=== PATIENT | female | born 2005 | race Caucasian/White ===

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

== ENCOUNTER 2024-01-09 16:23 | Emergency (ER) | payer OTHER ==
[~2024-01-09] VITALS: Ht 167.6 cm; Wt 63.5 kg
[2024-01-09 17:04] LABS: Source, Urine Voided
[2024-01-09 17:10] LABS: Appearance, Urine Cloudy (Clear); BASOPHILS ABSOLUTE AUTO 0.09 K/mm3 (0.00-0.23); BASOPHILS PERCENT AUTO 1 % (0-2); Bilirubin, Urine Neg (Neg); Blood, Urine 5+ (Neg); Color, Urine Brown (P-Yellow); EOSINOPHILS ABSOLUTE AUTO 0.61 K/mm3 (0.00-0.68); EOSINOPHILS PERCENT AUTO 5 % (0-6); Glucose Qualitative, Urine Neg (Neg); Hematocrit 41.3 % (33.0-51.0); Hemoglobin 13.6 g/dL (11.5-16.0); IMMATURE GRAN ABSOLUTE AUTO 0.05 K/mm3 (0.00-0.10); IMMATURE GRAN PERCENT AUTO 0 % (0-1); Ketones, Urine Neg (Neg); LYMPHOCYTES ABSOLUTE AUTO 1.89 K/mm3 (0.84-5.20); LYMPHOCYTES PERCENT AUTO 17 % (21-46); Leukocyte Esterase, Urine 2+ (Neg); MONOCYTES ABSOLUTE AUTO 0.74 K/mm3 (0.16-1.47); MONOCYTES PERCENT AUTO 7 % (4-13); Mean Corpuscular HGB 28.5 pg (26.0-34.0); Mean Corpuscular HGB Conc 32.9 g/dL (31.5-36.5); Mean Corpuscular Volume 86 fL (80-100); Mean Platelet Volume 10.1 fL (9.1-12.4); NEUTROPHILS ABSOLUTE AUTO 8.05 K/mm3 (1.96-9.15); NEUTROPHILS PERCENT AUTO 71 % (41-73); Nitrite, Urine Neg (Neg); Platelet Count 255 K/mm3 (150-400); Protein, Urine 2+ (Neg); RDW Coefficient Variation 14.3 % (11.7-14.2); Red Blood Cell Count 4.78 M/mm3 (3.80-5.20); Specific Gravity, Urine 1.015 (1.003-1.022); Urobilinogen, Urine NORM (Normal); White Blood Cell Count 11.43 K/mm3 (4.00-11.30)
[2024-01-09 17:22] LABS: Bacteria Mod /hpf; Red Blood Cells, Urine 50-100 /hpf (0-2); Squamous Epithelial Cells Few /hpf (Few); Transitional Epithelial Cells Rare /hpf (0-Rare)
[2024-01-09 17:31] LABS: Ethanol (Alcohol), Blood, Med <3 mg/dL; Salicylate <1.7 mg/dL (2.8-20.0)
[2024-01-09 17:32] LABS: Alanine Aminotransfer (ALT/SGP 25 U/L (12-78); Albumin, Blood 3.9 g/dL (3.4-5.0); Albumin/Globulin Ratio 1.1 (0.8-1.8); Alk Phos 58 U/L (45-116); Anion Gap 9 mmol/L (3-11); Aspartate Aminotrans (AST/SGOT 19 U/L (12-37); Bilirubin, Total 0.3 mg/dL (0.1-1.0); Blood Urea Nitrogen 5 mg/dL (8-21); Bun/Creatinine Ratio 9.6 (12.0-20.0); CO2, Blood 28 mmol/L (21-32); Calcium, Blood 8.8 mg/dL (8.5-10.1); Chloride, Blood 107 mmol/L (98-108); Creatinine, Blood 0.52 mg/dL (0.40-1.00); Globulin, Blood 3.7 g/dL (2.2-4.0); Glomerular Filtration Rate 137 (60-); Glucose, Blood 88 mg/dL (70-99); Potassium, Blood 3.7 mmol/L (3.5-5.5); Sodium, Blood 140 mmol/L (136-145); Total Protein, Blood 7.6 g/dL (6.4-8.2)
[2024-01-09 17:33] LABS: Acetaminophen, Random <2.0 ug/mL (10.0-30.0)
[2024-01-09 17:36] LABS: U Amphetamine Screen Not Detected; U Barbituate Screen Not Detected; U Benzodiazapine Screen Not Detected; U Buprenorphine Screen Not Detected; U Cannabinoids Screen DETECTED; U Cocaine Screen Not Detected; U Methadone Screen Not Detected; U Methamphetamine Screen Not Detected; U Opiates Screen Not Detected; U Oxycodone Screen Not Detected; U Phencyclidine Screen Not Detected
[2024-01-10] MEDS ORDERED: Haloperidol 5 MG Tab PO PRN ×3 (05:00→05:05)
[2024-01-10] MEDS ORDERED: RisperiDONE 1 MG Tab PO PRN (05:00)
[2024-01-10] MEDS ORDERED: QUEtiapine Fumarate 25 MG Tab PO PRN (05:05)
[2024-01-10] MEDS ORDERED: OLANZapine ODT 10 MG Tab MM PRN (05:05)
[2024-01-10] MEDS ORDERED: OLANZapine 10 MG Vial IM PRN ×2 (05:05→05:10)
[2024-01-10] MEDS ORDERED: DiphenhydrAMINE HCl 50 MG Cap PO PRN ×3 (05:05→05:10)
[2024-01-10] MEDS ORDERED: Aluminum Hydroxide 320MG/5ML 473 ML PO PRN (05:10)
[2024-01-10] MEDS ORDERED: LORazepam 2 MG Tab PO PRN ×5 (05:10→05:15)
[2024-01-10] MEDS ORDERED: Acetaminophen 325 MG TABLET PO PRN (05:10)
[2024-01-10] MEDS ORDERED: Mirtazapine 15 MG Tab PO PRN (05:10)
[2024-01-10] MEDS ORDERED: TraZODone HCl 50 MG Tab PO PRN (05:10)
[2024-01-10] MEDS ORDERED: Ibuprofen 600 MG Tab PO PRN (05:15)
[2024-01-10] MEDS ORDERED: Melatonin 3 MG Tab PO PRN (05:15)
[2024-01-10] MEDS ORDERED: Nitrofurantoin/Nitrofuran Mac 100 MG Cap PO SCH ×2 (09:00→11:30)
[2024-01-10] MEDS ORDERED: Ferrous Sulfate 325 MG Tab PO SCH (13:00)
[2024-01-10] MEDS ORDERED: QUEtiapine Fumarate 100 MG Tab PO SCH (21:00)
--- NOTE | 2024-01-10 21:17 | NUR ---
PHYSICAL ASSESSMENT: PATIENT IS A AND 0 X 4, LUNG CLEAR THROUGHOUT, HRR, BT X 4, NO C/O CONSTIPATION. ABLE TO MAKE NEEDS KNOWN, ABLE TO ADVOCATE FOR SELF, BUT PREFERS SOMEONE THERE TO SUPPORT HER. STATES SHE SLEPT WELL LAST NIGHT.
--- NOTE | 2024-01-11 04:58 | NUR ---
SHIFT SUMMARY: PATIENT WAS AWAKE AND ON THE TELEPHONE WITH BOYFRIEND, QAMAR, WHEN RN RECEIVED PATIENT. SHE STATED THAT SHE WAS VISITING WITH HIM TOMORROW AND THEY SIGNED UP FOR 11:30 AM ON JANUARY 11, 2024. PATIENT HAD NO SI/HI THIS SHIFT. SHE STATED, "ALL I WANT IS A GOOD SLEEP" AND TOOK HER EVENING MEDICATIONS AT 2029. SHE THEN WAS NOTED TO BE RESTING QUIETLY IN BED WITH EYES CLOSED AND RESPIRATIONS CONFIRMED THROUGHOUT THE REMAINDER OF THE SHIFT.
[2024-01-11] MEDS ORDERED: buPROPion HCL 150 MG TAB.SR.12H PO SCH (09:00)
[2024-01-11] MEDS ORDERED: MENTHOL TOP PRN (10:15)
[2024-01-11] MEDS ORDERED: PHENOL TOP PRN (10:15)
[2024-01-11] MEDS ORDERED: CAMPHOR TOP PRN (10:15)
[2024-01-11] MEDS ORDERED: [UNRECOGNIZED DRUG - OTHER] TOP PRN (10:15)
== END 2024-01-10 02:30 | disposition other institution (70) ==
LOC: ER 16:23 → EOR 16:24 → ER 16:24 → EOR 22:22 → ER 22:22 → BHU 22:22
PROVIDERS: Emergency Medicine
DX: T14.91XA Suicide attempt, initial encounter (principal); S11.91XA Laceration without foreign body of unspecified part of neck, initial encounter; X78.8XXA Intentional self-harm by other sharp object, initial encounter; E11.9 Type 2 diabetes mellitus without complications; Z88.0 Allergy status to penicillin; Z88.1 Allergy status to other antibiotic agents
CPT/HCPCS: 12002; 36415; 80053; 81001; 81025; 84702; 84703; 85025; 87077; 87086; 87186; 93005; 93010; 99285-25; A9270; G0378; G0480

== ENCOUNTER 2024-01-09 22:22 | Inpatient (IN) | payer OTHER ==
--- NOTE | 2024-01-09 22:55 | NUR ---
CLOTH DESIZING RANGE OPERATOR CHIEF SPOKE WITH CARD PLACER PSYCHIATRIST REGARDING LEVEL OF SUPERVISION FOR PATIENT. HE STATED THAT PATIENT IS 15 MINUTE CHECK AT THIS TIME.
[2024-01-10 05:42] VITALS: BP 111/62
--- NOTE | 2024-01-10 08:24 | NUR ---
DENIES SI AT THIS TIME
[2024-01-10 10:03] VITALS: BP 124/90
--- NOTE | 2024-01-10 10:09 | NUR ---
Came onto shift at 0645 PT woke up around 0920, asked if she could have a change of scrubs as she started her period and bled through the bottom scrubs. I asked PT if I could grab her shower stuff for her, and she said she didnt want to shower and started to cry. I let PT know I could help her shower but we needed to clean the dried blood and wash her body. PT continued to cry, I said I wouldnt leave her side if she didnt want me too, she said okay. I grabbed PT shower stuff and new scrubs, we turned the shower on and she cried the entire time stating she just wanted to go home and felt bad that she was missing Group with OT Eda because of showering. I let her know that it is totally okay and there will be another group shortly. She said okay. She did not want to shower using soap, but after I poured some on the washcloth, she said okay and used it. She did not want to wash her hair, I asked her three times and she refused, I said that was ok but she needed to at least wet it down and scrub her scalp, she said okay and she did, I said if she wasnt going to put soap in her hair today then she would need to tomorrow, and she said that sounded like a good deal, I said okay. PT came out of the shower and I helped her dress into new scrubs, put two pads on her underwear, confirmed she changed her tampon. I checked the PTs room for any blood as it was smeared all across the toliet, I found blood on the bed, sheets, towels, mattress, and quilt. I grabbed JOSUE Crespo and she helped me clean the room properly and replace sheets. RN notified.
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
[2024-01-10] MEDS ORDERED: QUEtiapine Fumarate 100 MG Tab PO SCH (21:00)
[2024-01-11] MEDS ORDERED: buPROPion HCL 150 MG TAB.SR.12H PO SCH (09:00)
[2024-01-11] MEDS ORDERED: [UNRECOGNIZED DRUG - OTHER] TOP PRN (10:25)
[2024-01-11] MEDS ORDERED: MENTHOL TOP PRN (10:25)
[2024-01-11] MEDS ORDERED: PHENOL TOP PRN (10:25)
[2024-01-11] MEDS ORDERED: CAMPHOR TOP PRN (10:25)
[2024-01-11] MEDS ORDERED: Haloperidol 5 MG Tab PO PRN ×3 (11:10→11:25)
[2024-01-11] MEDS ORDERED: DiphenhydrAMINE HCl 50 MG Cap PO PRN ×3 (11:15→11:20)
[2024-01-11] MEDS ORDERED: LORazepam 2 MG Tab PO PRN ×5 (11:15→11:25)
[2024-01-11] MEDS ORDERED: OLANZapine ODT 10 MG Tab MM PRN (11:15)
[2024-01-11] MEDS ORDERED: OLANZapine 10 MG Vial IM PRN ×2 (11:15→11:20)
[2024-01-11] MEDS ORDERED: QUEtiapine Fumarate 25 MG Tab PO PRN (11:15)
[2024-01-11] MEDS ORDERED: Mirtazapine 15 MG Tab PO PRN (11:15)
[2024-01-11] MEDS ORDERED: Aluminum Hydroxide 320MG/5ML 473 ML PO PRN (11:20)
[2024-01-11] MEDS ORDERED: TraZODone HCl 50 MG Tab PO PRN (11:20)
[2024-01-11] MEDS ORDERED: Acetaminophen 325 MG TABLET PO PRN (11:20)
[2024-01-11] MEDS ORDERED: Melatonin 3 MG Tab PO PRN (11:20)
[2024-01-11] MEDS ORDERED: RisperiDONE 1 MG Tab PO PRN (11:20)
[2024-01-11] MEDS ORDERED: Ibuprofen 600 MG Tab PO PRN (11:25)
[2024-01-11] MEDS ORDERED: LORazepam 1 MG Tab PO ONE (12:10)
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
--- NOTE | 2024-01-11 13:44 | NUR ---
PT UP IN GROUP ROOM PLAYING CARDS. NO MORE CRYING AND SHE IS SMILEING. WILL CONTINUE TO MONITOR.
--- NOTE | 2024-01-11 14:46 | NUR ---
DR ESCALANTE INTO SEE PT TODAY. TO SEE HOW SHE IS DOING. BP SITING 103/75, STANDING 106/78. HE WILL ORDER LABS FOR THE AM.
--- NOTE | 2024-01-11 16:20 | NUR ---
At approximately 1300 SW met with pt in order to provide correction resources (i.e. [facility], [facility], and [facility]). SW discussed with pt how to use healthy communication when engaging in self-advocacy. SW educated how to practice healthy mindfulness and positive thoughts during triggering events. SW reviewed with pt her current strengths. Pt expressed her boyfriend ended their relationship when he came to visit her in the [facility].
--- NOTE | 2024-01-11 19:48 | NUR ---
PT IS IN DINING ROOM WITH OTHER PTS WORKING ON [employer] AND [employer]. DENIES ANY SI/HI/A/V/T HALLUCINATIONS. TALKING AND SMILING DURING CONVERSATION. WILL GIVE HS MEDS WHEN TIME.
[2024-01-11 20:08] VITALS: BP 111/81
[2024-01-11] MEDS ORDERED: QUEtiapine Fumarate 300 MG Tab PO SCH (21:00)
[2024-01-11] MEDS ORDERED: LevETIRAcetam 500 MG Tab PO SCH (21:00)
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
--- NOTE | 2024-01-12 08:25 | NUR ---
PT WAS SLEEPING GOOD AT BREAKFAST TIME: 2 [facility] OFFERED HER UP FOR FRESH COFFEE AND BREAKFAST: SAVING HER BREAKFAST TILL SHE AWAKENS.
[2024-01-12 10:27] LABS: Hematocrit 46.2 % (33.0-51.0); Hemoglobin 15.2 g/dL (11.5-16.0); Mean Corpuscular HGB 28.5 pg (26.0-34.0); Mean Corpuscular HGB Conc 32.9 g/dL (31.5-36.5); Mean Corpuscular Volume 87 fL (80-100); Mean Platelet Volume 9.7 fL (9.1-12.4); Platelet Count 291 K/mm3 (150-400); RDW Coefficient Variation 14.3 % (11.7-14.2); RDW Standard Deviation 45.1 fL (35.1-46.3); Red Blood Cell Count 5.33 M/mm3 (3.80-5.20); White Blood Cell Count 8.64 K/mm3 (4.00-11.30)
--- NOTE | 2024-01-12 10:41 | NUR ---
[place] BUT STILL A BIT DROWSY FROM SLEEPING MED LAST NIGHT. DR ESTRADA INTO SEE PT. DR ESCALANTE INT SEE PT THS A.. LABS DUSTIN THS AM. HRR, LUNGS CLEAR, AND BT X4 POSITIVE. WILL CONTINUE TO MONITOR.
--- NOTE | 2024-01-12 17:00 | NUR ---
PT WAS WORRIED ABOUT HER LIVING SITUATION, SHE MADE MENTION OF CALLING THE ADOPTIVE PARENTS ABOUT MOVING WITH THEM TO [place], THEN SHE COULD ALSO SEE HER BABY. PT TALKED WITH A PT THAT WAS JUST PREVIOUSLY DISHCHARGED: PT STATED THAT SHE HAS HER LIVING SITUATION FIGURED OUT, THAT SHE WILL BE LIVING IN A CAR @ PREVIOUS PT'S HOUSE: PT TALKED ABOUT HER BABY DURING SHOWER: SHOWED SIGNS OF SADNESS OF NOT KNOWING HOW TO TAKE CARE OF BABY AND NOT HAVING THE MEANS TO: ALSO SHARED SADNESS OF RECENT BREAK UP WITH BF:
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
--- NOTE | 2024-01-12 20:52 | NUR ---
Patient crying out and throwing self on TV room floor. Willing to take HS Zyprexa early, but not until i confirmed it was an antipsychotic. 45 minutes later, she had another episode . 2mg ativan was given for a MASS score of 9-10. will continue close monitoring
[2024-01-12] MEDS ORDERED: OLANZapine 10 MG Tab PO SCH (21:00)
[2024-01-12] MEDS ORDERED: Nitrofurantoin/Nitrofuran Mac 100 MG Cap PO SCH (21:00)
[2024-01-12 21:09] VITALS: BP 112/72
--- NOTE | 2024-01-13 05:03 | NUR ---
Patient was quite distressed and childlike until around 2129 when she received a PRN Ativan for relief of her anxiety. Then she began to calm down and was able to sit down and color pictures for about an hour before she went to bed and slept through the rest of the night. Approximately 6.5-7 hours of sleep so far. will continue close moitoring
--- NOTE | 2024-01-13 10:39 | NUR ---
AT 1000 WOKE PT UP FOR THE MORNING. SHE ATE BRAKFAST AND TOOK MEDS. SHE WILL HAVE A VISITOR AROUND 1200 TODAY. SUTURES IN NECK ARE CLEAN AND INTACT. AFTER SHE SHOWERS WILL PUT BACITRACIN OINTMENT ON THEM. NO PAIN EXCEPT WHEN TOUCHING THEM. HRR, BT X4 POSIIVE AND LUNG SMITH CLEAR. WILL BE IN TO SEE PT SOMETIME TODAY.
--- NOTE | 2024-01-13 11:30 | NUR ---
PT CRYING AND LAYING ON THE FLOOR. NO TEARS PRESENT. SHE WAS UPSET THAT GROUP IS NOT DOING WHAT SHE WANTS TO DO. LET PT KNOW TO GET UP ON HER BED IF SHE WANTS TO CRY BECAUSE THE FLOOR IS HARD. SHE SAID SHE WANTED TO BE ALONE AND STY ON THE FLOOR. ALSO LET HER KNOW THAT THE DR WILL BE CONTACTED ABOUT THIS. DR NOTIFIED AND NO ORDERS GIVEN. PT TO HAVE A VISITOR SOON. WILL CONTINUE TO NASH.
--- NOTE | 2024-01-13 17:19 | NUR ---
SHIFT SUMMARY. PT HAD A GOOD DAY AFTER 1200 WHEN HAVING VISITOR STOP BY. PARTICIPATED IN GROUPS. BACITRACIN PUT ON NECK WOUND. POSSIBLE DISCHARGE IN THE MORNING.
--- NOTE | 2024-01-13 17:27 | NUR ---
PT SHARED AT SUPPER TIME THAT PREVIOUS PT IS HELPING HER WITH HOTEL FOR 2 MONTHS: PT MOOD IS HAPPY SINCE VISIT:
[2024-01-13] MEDS ORDERED: OLANZapine 10 MG Tab PO SCH (21:00)
[2024-01-13 21:18] VITALS: BP 115/83
--- NOTE | 2024-01-13 21:30 | NUR ---
PATIENT VERY UPBEAT TONIGHT. PARTICIPATING IN GROUP ACTIVITIES. SPEECH VERY FLUENT AND SPONTANEOUS. ASKED ABOUT HOW LONG HER ZYPREXA WOULD TAKE TO KICK IN, SHE WANTED TO MAKE SURE SHE WAS ABLE TO FINISH HER PAINTING PROJECT. WILL CHECK ON HER AROUND 2200 TO SEE IF SHE IS READY.
--- NOTE | 2024-01-14 05:07 | NUR ---
Patient was Alert times three, participating in arts and crafts and talking with female patients until she went to bed around 2230 last night. Did not want to take her zyprexa until 30 minutes prior to bedtime as she wanted to complete her projects. Cooperative with care and assessment. Eyes downcast most of the time while talking to this nurse. However, there were no episodes of crying or behaviors of such overnight. to this point, patient has slept consecutively for approximately 6.5 hours.
[2024-01-14] MEDS ORDERED: OLAN10 PO (12:06)
[2024-01-14] MEDS ORDERED: NITR100CA PO (12:07)
[2024-01-14] MEDS ORDERED: NICODERM CQ1 EA11 (12:08)
[2024-01-14] MEDS ORDERED: CAMPHETO (12:09)
[2024-01-14] MEDS ORDERED: LEVE500 PO (12:10)
--- NOTE | 2024-01-14 13:31 | NUR ---
Patient Discharged at 1330. All belongings returned [facility] Patient had items in safe and all safe items have been returned as well.
--- NOTE | 2024-01-14 13:41 | NUR ---
PT AA&OX4. PLEASANT AND COOPERATIVE WITH CARE. SPEECH AND EYE CONTACT APPROPRIATE. DENIES SI/AH/VH/HI. DC ORDERS RECEIVED, FOLLOW UP APPT.MED LIST, DX EDUCATION REVIEWED WITH PT. PT VERBALIZED UNDERSTANDING. SHE DENIES ANY QUESTIONS AT THIS TIME
--- NOTE | 2024-01-14 15:57 | NUR ---
JIMBO called [facility] at 08:21am and remained on the phone until approximately 08:31am in order to schedule follow up appointment for mental health intake assessment. JIMBO spoke with Codi. Codi advised that pt appointment will be 01/16/2024 at 1400pm.
--- NOTE | 2024-01-14 16:16 | NUR ---
Per request of pt, JIMBO contacted Magdalena Guerra of number [phone] at 11:23am in order to review if Ms. Guerra would be able to lease picker pt for her discharge. Mari confirmed that she would be able to lease picker pt and confirmed that she would assist pt in housing after discharge. Pt confirmed housing arrangement assistance before JIMBO called Mari.
== END 2024-01-14 13:30 | disposition home or self-care (01) | DRG 605 ==
LOC: BHU 22:22
PROVIDERS: Hospitalist; ADMIT Student in an Organized Health Care Education/Training Program
PROC: 0HQ4XZZ Repair Neck Skin, External Approach (ICD-10-PCS; principal; 2024-01-09)
DX: S11.81XA Laceration without foreign body of other specified part of neck, initial encounter (principal); N39.0 Urinary tract infection, site not specified; F32.2 Major depressive disorder, single episode, severe without psychotic features; F20.0 Paranoid schizophrenia; Z59.00 Homelessness unspecified; N92.0 Excessive and frequent menstruation with regular cycle; X78.8XXA Intentional self-harm by other sharp object, initial encounter; F60.3 Borderline personality disorder
CPT/HCPCS: 36415; 85027; A9270

== ENCOUNTER 2024-01-18 00:08 | Observation (INO) | payer OTHER ==
[~2024-01-18] VITALS: Ht 167.6 cm; Wt 63.5 kg
[~2024-01-18 00:08] MED LIST: CAMPHETO; LEVE500 PO; NICODERM CQ1 EA11; NITR100CA PO; OLAN10 PO
[2024-01-18 00:46] LABS: BASOPHILS ABSOLUTE AUTO 0.09 K/mm3 (0.00-0.23); BASOPHILS PERCENT AUTO 1 % (0-2); EOSINOPHILS ABSOLUTE AUTO 0.63 K/mm3 (0.00-0.68); EOSINOPHILS PERCENT AUTO 7 % (0-6); Hematocrit 38.9 % (33.0-51.0); Hemoglobin 12.3 g/dL (11.5-16.0); IMMATURE GRAN ABSOLUTE AUTO 0.11 K/mm3 (0.00-0.10); IMMATURE GRAN PERCENT AUTO 1 % (0-1); LYMPHOCYTES ABSOLUTE AUTO 2.77 K/mm3 (0.84-5.20); LYMPHOCYTES PERCENT AUTO 29 % (21-46); MONOCYTES ABSOLUTE AUTO 0.71 K/mm3 (0.16-1.47); MONOCYTES PERCENT AUTO 8 % (4-13); Mean Corpuscular HGB 28.1 pg (26.0-34.0); Mean Corpuscular HGB Conc 31.6 g/dL (31.5-36.5); Mean Corpuscular Volume 89 fL (80-100); Mean Platelet Volume 9.8 fL (9.1-12.4); NEUTROPHILS ABSOLUTE AUTO 5.16 K/mm3 (1.96-9.15); NEUTROPHILS PERCENT AUTO 54 % (41-73); Platelet Count 233 K/mm3 (150-400); RDW Coefficient Variation 14.1 % (11.7-14.2); RDW Standard Deviation 46.2 fL (35.1-46.3); Red Blood Cell Count 4.37 M/mm3 (3.80-5.20); White Blood Cell Count 9.47 K/mm3 (4.00-11.30)
[2024-01-18 01:09] LABS: Ethanol (Alcohol), Blood, Med <3 mg/dL; Salicylate <1.7 mg/dL (2.8-20.0); Thyroxine (T4) 5.3 ug/dL (4.8-13.9)
[2024-01-18 01:13] LABS: Thyroid Stimulating Hormone 0.459 uIU/mL (0.360-4.800)
[2024-01-18 01:14] LABS: Alanine Aminotransfer (ALT/SGP 49 U/L (12-78); Albumin, Blood 3.6 g/dL (3.4-5.0); Albumin/Globulin Ratio 1.1 (0.8-1.8); Alk Phos 60 U/L (45-116); Anion Gap 10 mmol/L (3-11); Aspartate Aminotrans (AST/SGOT 34 U/L (12-37); Bilirubin, Total 0.2 mg/dL (0.1-1.0); Blood Urea Nitrogen 9 mg/dL (8-21); Bun/Creatinine Ratio 16.2 (12.0-20.0); CO2, Blood 23 mmol/L (21-32); Calcium, Blood 8.2 mg/dL (8.5-10.1); Chloride, Blood 112 mmol/L (98-108); Creatinine, Blood 0.56 mg/dL (0.40-1.00); Globulin, Blood 3.3 g/dL (2.2-4.0); Glomerular Filtration Rate 135 (60-); Glucose, Blood 213 mg/dL (70-99); Potassium, Blood 3.5 mmol/L (3.5-5.5); Sodium, Blood 141 mmol/L (136-145); Total Protein, Blood 6.9 g/dL (6.4-8.2)
[2024-01-18 01:15] LABS: Acetaminophen, Random <2.0 ug/mL (10.0-30.0)
[2024-01-18 01:37] LABS: Source, Urine Clean Catch
[2024-01-18 01:39] LABS: Appearance, Urine Clear (Clear); Bilirubin, Urine Neg (Neg); Blood, Urine Neg (Neg); Color, Urine Yellow (P-Yellow); Glucose Qualitative, Urine 1+ (Neg); Ketones, Urine Neg (Neg); Leukocyte Esterase, Urine Neg (Neg); Nitrite, Urine Neg (Neg); Protein, Urine Neg (Neg); Specific Gravity, Urine 1.015 (1.003-1.022); Urobilinogen, Urine NORM (Normal)
[2024-01-18 01:51] LABS: U Amphetamine Screen Not Detected; U Barbituate Screen Not Detected; U Benzodiazapine Screen Not Detected; U Buprenorphine Screen Not Detected; U Cannabinoids Screen DETECTED; U Cocaine Screen Not Detected; U Methadone Screen Not Detected; U Methamphetamine Screen Not Detected; U Opiates Screen Not Detected; U Oxycodone Screen Not Detected; U Phencyclidine Screen Not Detected
[2024-01-18] MEDS ORDERED: LevETIRAcetam 500 MG Tab PO SCH (21:00)
[2024-01-18] MEDS ORDERED: OLANZapine 10 MG Tab PO SCH (21:00)
[2024-01-19] MEDS ORDERED: Nicotine 21 MG PATCH TOP SCH (09:00)
== END 2024-01-19 12:25 | disposition home or self-care (01) ==
LOC: ER 00:08 → EOR 00:09
PROVIDERS: ADMIT Emergency Medicine
DX: F20.0 Paranoid schizophrenia (principal); F33.2 Major depressive disorder, recurrent severe without psychotic features; R45.851 Suicidal ideations; F60.3 Borderline personality disorder; E11.9 Type 2 diabetes mellitus without complications; Z88.0 Allergy status to penicillin; Z88.8 Allergy status to other drugs, medicaments and biological substances; Z79.899 Other long term (current) drug therapy
CPT/HCPCS: 80053; 81003; 81025; 84436; 84443; 85025; 99285-25; A9270; G0378; G0480